=== PATIENT | female | born 1960 | race Caucasian/White ===

== ENCOUNTER → 2016-03-29 | Outpatient (CLI) | payer BC | LOC: MC.RAD 11:34 | DX: Z12.31 Encounter for screening mammogram for malignant neoplasm of breast (principal); Z80.3 Family history of malignant neoplasm of breast ==

== ENCOUNTER → 2017-05-11 | Outpatient (REF) | LOC: ZLAB.WCH 15:47 | DX: Z01.89 Encounter for other specified special examinations (principal) ==

== ENCOUNTER 2017-05-31 07:35 | Day surgery (SDC) | payer BC ==
[~2017-05-31] VITALS: Ht 167.6 cm; Wt 85.6 kg
[2017-05-31] VITALS (12 sets, daily range): BP systolic 112–146; BP diastolic 60–82; PULSE 52–79; TEMP 97.3–99
[2017-05-31] MEDS ORDERED: ESTRACE 1MG1 MG/TAB PO (07:54)
[2017-05-31] MEDS ORDERED: SYNTHROID0.088 MG/T PO (07:54)
[2017-05-31] MEDS ORDERED: DETROL LA 2 MG2 MG PO (07:55)
[2017-05-31] MEDS ORDERED: BENTYL 10MG10 MG/CAP PO (07:55)
[2017-05-31] MEDS ORDERED: PRAVACHOL 20MG20 MG PO (07:56)
[2017-05-31] MEDS ORDERED: ENTOCORT EC3 MG PO (09:50)
== END 2017-05-31 14:00 | disposition home or self-care (01) ==
LOC: SDCO 07:35
DX: K52.9 Noninfective gastroenteritis and colitis, unspecified (principal); K57.30 Diverticulosis of large intestine without perforation or abscess without bleeding; E03.9 Hypothyroidism, unspecified; I34.1 Nonrheumatic mitral (valve) prolapse
CPT/HCPCS: OP; J2250; J2405; J2550; J3010; J7030

== ENCOUNTER → 2017-08-15 | Outpatient (CLI) | payer BC ==
[~2017-08-15] MED LIST: BENTYL 10MG10 MG/CAP PO; DETROL LA 2 MG2 MG PO; ENTOCORT EC3 MG PO; ESTRACE 1MG1 MG/TAB PO; PRAVACHOL 20MG20 MG PO; SYNTHROID0.088 MG/T PO
== END ==
LOC: MC.RAD 08-11 13:20
DX: Z12.31 Encounter for screening mammogram for malignant neoplasm of breast (principal)

== ENCOUNTER → 2018-08-21 | Outpatient (CLI) | payer BC | LOC: MC.RAD 11:11 | DX: Z12.31 Encounter for screening mammogram for malignant neoplasm of breast (principal) ==

== ENCOUNTER → 2019-09-11 | Outpatient (CLI) | payer BC | LOC: MC.RAD 15:34 | DX: Z12.31 Encounter for screening mammogram for malignant neoplasm of breast (principal) ==

== ENCOUNTER → 2019-12-03 | Outpatient (CLI) | payer BC | LOC: MHCPAIN 14:41 | DX: M47.817 Spondylosis without myelopathy or radiculopathy, lumbosacral region (principal); M54.5 Low back pain; M53.3 Sacrococcygeal disorders, not elsewhere classified; G89.29 Other chronic pain; M54.16 Radiculopathy, lumbar region | CPT/HCPCS: G0463 ==

== ENCOUNTER 2020-01-08 05:32 | Day surgery (SDC) | payer BC ==
[~2020-01-08] VITALS: Ht 165.1 cm; Wt 87.3 kg
[2020-01-08] VITALS (11 sets, daily range): BP systolic 90–145; BP diastolic 44–71; PULSE 52–83; TEMP 97.9–98.9
[2020-01-08] MEDS ORDERED: LIORESAL 1010 MG/TAB PO (06:45)
[2020-01-08] MEDS ORDERED: BENTYL 20MG20 MG/TAB PO (06:50)
[2020-01-08] MEDS ORDERED: ESTRACE 1MG1 MG/TAB PO (06:52)
[2020-01-08] MEDS ORDERED: ULTRAVATE CREAM15 GM TP (07:00)
[2020-01-08] MEDS ORDERED: SYNTHROID0.1 MG/TAB PO (07:01)
[2020-01-08] MEDS ORDERED: CLARITIN 1010 MG/TAB PO (07:02)
[2020-01-08] MEDS ORDERED: MYRBETR50MG PO (07:03)
[2020-01-08] MEDS ORDERED: PRAVACHOL 20MG20 MG PO (07:03)
[2020-01-08] MEDS ORDERED: AZULFIDINE500 MG/TAB PO (07:05)
[2020-01-08] MEDS ORDERED: COLACE 100100 MG/CAP PO (09:59)
[2020-01-08] MEDS ORDERED: NORCO 325 MG-51 TAB PO (10:00)
--- NOTE | 2020-01-08 15:00 | NUR ---
Patient alert and oriented, answers questions appropriately. See assessment. Abdomen soft, non tender, non distended. Bowel sounds active x4 quads. No flatus. Lap sites to abdomen with edges well approximated, no redness or drainage noted. Dunlap catheter patent and draining clear yellow urine. ERAS protocol reviewed with patient. No c/o at this time.
[2020-01-09 01:13] VITALS: BP 98/40; PULSE 80; TEMP 98.2
[2020-01-09 04:18] VITALS: BP 121/52; PULSE 70; TEMP 98.5
[2020-01-09 06:25] LABS: HEMOGLOBIN 11.4 g/dl (12.5-16.0)
[2020-01-09 06:37] LABS: CALCIUM 8.4 mg/dL (8.4-10.2); CREATININE, serum 0.79 (0.52-1.25); POTASSIUM 3.9 mmol/L (3.4-5.0)
[2020-01-09 06:47] LABS: HEMATOCRIT 35.4 % (37.0-47.0)
[2020-01-09 08:40] VITALS: BP 104/50; PULSE 75; TEMP 98.3
--- NOTE | 2020-01-09 09:30 | NUR ---
Patient alert and oriented, answers questions appropriately. See assessment. Abdomen soft, non tender, non distended. Bowel sounds active x4 quads. Lap sites with edges well approximated, no redness or drainage noted. ERAS protocol reviewed with patient, no c/o at this time.
--- NOTE | 2020-01-09 11:51 | NUR ---
First visit from the [employer] worker. No needs right now.
[2020-01-09 12:17] VITALS: BP 118/62; PULSE 77; TEMP 97.3
--- NOTE | 2020-01-09 13:27 | NUR ---
SW met with the patient to discuss discharge plan. The patient lives in [place] with her , Fortino ([id number]#[phone]). She reports independence with ADLs and has a cane and walker available, if needed. The patient's PCP is Dr. Na Powers and she receives her medications from [place] [facility]. She reports no difficulties obtaining her meds. The patient's DPOA-HC is in EMR and it designates her . The patient plans to return home with her upon discharge. No additional needs at this time.
--- NOTE | 2020-01-09 14:46 | NUR ---
Discharge instructions reviewed with patient, verbalized understanding. Discharged via wheelchair to auto/home with family at 1420.
== END 2020-01-09 14:20 | disposition home or self-care (01) ==
LOC: SDCO 05:32 → JCC 13:10 → SDCO 01-09 14:20
PROVIDERS: Urology
DX: N99.3 Prolapse of vaginal vault after hysterectomy (principal); E03.9 Hypothyroidism, unspecified; Z79.899 Other long term (current) drug therapy; Z79.890 Hormone replacement therapy; E78.00 Pure hypercholesterolemia, unspecified; K50.90 Crohn's disease, unspecified, without complications; Z80.3 Family history of malignant neoplasm of breast; Z20.828 Contact with and (suspected) exposure to other viral communicable diseases
CPT/HCPCS: OP; A4314; C1781; J0690; J1885; J2550; J2704; J3010; J7120

== ENCOUNTER → 2020-02-19 | Outpatient (CLI) | payer BC ==
[~2020-02-19] MED LIST changes: +AZULFIDINE500 MG/TAB PO; +BENTYL 20MG20 MG/TAB PO; +CLARITIN 1010 MG/TAB PO; +COLACE 100100 MG/CAP PO; +LIORESAL 1010 MG/TAB PO; +MYRBETR50MG PO; +NORCO 325 MG-51 TAB PO; +SYNTHROID0.1 MG/TAB PO; +ULTRAVATE CREAM15 GM TP
== END ==
LOC: MHCPAIN 14:14
DX: M47.817 Spondylosis without myelopathy or radiculopathy, lumbosacral region (principal); G57.01 Lesion of sciatic nerve, right lower limb; G89.29 Other chronic pain; M53.3 Sacrococcygeal disorders, not elsewhere classified
CPT/HCPCS: G0463

== ENCOUNTER → 2020-09-17 | Outpatient (CLI) | payer BC | LOC: MC.RAD 10:52 | DX: Z12.31 Encounter for screening mammogram for malignant neoplasm of breast (principal) ==

== ENCOUNTER → 2021-04-06 | Outpatient (CLI) | payer BC | LOC: MHCPAIN 11:17 | DX: M53.3 Sacrococcygeal disorders, not elsewhere classified (principal); M54.50 Low back pain, unspecified; G89.29 Other chronic pain; M79.18 Myalgia, other site | CPT/HCPCS: G0463 ==

== ENCOUNTER → 2021-10-26 | Outpatient (CLI) | payer BC | LOC: MC.RAD 13:00 | DX: Z12.31 Encounter for screening mammogram for malignant neoplasm of breast (principal) ==

== ENCOUNTER → 2022-11-10 | Outpatient (CLI) | payer MEDICARE | LOC: CANPRECLI → MC.RAD 13:52 | DX: Z12.31 Encounter for screening mammogram for malignant neoplasm of breast (principal); N63.20 Unspecified lump in the left breast, unspecified quadrant ==

== ENCOUNTER → 2022-11-23 | Outpatient (CLI) | payer BC | LOC: MC.RAD 09:52 | DX: N60.02 Solitary cyst of left breast (principal) ==

== ENCOUNTER → 2023-11-14 | Outpatient (CLI) | payer MEDICARE | LOC: MC.RAD 13:15 | DX: Z12.31 Encounter for screening mammogram for malignant neoplasm of breast (principal) ==